=== PATIENT | male | born 1980 ===

== ENCOUNTER 2018-12-20 21:41 | Emergency (ER) | payer BC ==
[2018-12-20] MEDS ORDERED: Lidocaine 1% 20 ML MDV ONE (21:58)
[2018-12-20] MEDS ORDERED: Adacel (T-DAP) 0.5 ML SYRINGE ONE (22:00)
--- NOTE | 2018-12-20 22:37 | CT ---
CT HEAD WITHOUT IV CONTRAST COMPARISON: None HISTORY: Patient fell and hit head on floor. Laceration to forehead with abrasion to nose. TECHNIQUE: Axial CT imaging at 5 mm intervals from vertex through skull base without contrast FINDINGS: There is no evidence of an acute infarction, hemorrhage, mass effect, or midline shift. The ventricul ar system is normal in size, shape, and position. Visualized paranasal sinuses are clear. Osseous structures appear intact.There is a small amount of scalp soft tissue swelling in the midline anterior frontal region. No calvarial fracture is seen. IMPRESSION: 1. No acute intracranial abnormality demonstrated. 2. Small midline frontal scalp hematoma.
--- NOTE | 2018-12-20 22:43 | CT ---
EXAM: CT Facial Bones WO Con PROVIDED CLINICAL HISTORY: Patient fell forward and hit head on floor. Laceration and abrasion to forehead and nose. COMPARISON: None FINDINGS: No fracture is seen involving the facial bones. The temporomandibular joints are normally located. Minimal mucosal thickening is seen in the region of the right frontoethmoidal recess and right fronta l sinus. Mild mucosal thickening is also seen in the floor of each maxillary antrum. The mastoid air cells are clear. The orbits have a normal and symmetric appearance bilaterally. The limited visualized upper cervical spine demonstrates normal alignment without fracture or subluxa tion. IMPRESSION: No evidence of a fracture involving the facial bones.
== END 2018-12-20 22:50 | disposition home or self-care (01) ==
LOC: SCSER 21:41
DX: S01.01XA Laceration without foreign body of scalp, initial encounter (principal); W08.XXXA Fall from other furniture, initial encounter
CPT/HCPCS: 70450; 70486; 90471; 90715; J2001